=== PATIENT | male | born 1980 | race African-American/Black ===

== ENCOUNTER 2016-12-30 23:14 | Emergency (ER) | payer BC ==
[~2016-12-30] VITALS: Ht 182.9 cm; Wt 136.1 kg
[2016-12-31 01:25] VITALS: BP 168/93
--- NOTE | 2016-12-31 01:29 | PHYS DOC ---
Past Medical History Past Medical History: No Pertinent History Past Surgical History: No Surgical History Alcohol Use: None Drug Use: None Adult General Chief Complaint Chief Complaint: PAIN ON URINATION HPI HPI Patient is a 36 year old male who presents with dysuria & penile discharge. The patient reports onset of symptoms yesterday, has burning with urination & white discharge. Denies fevers/chills, nausea, vomiting, abdominal pain, flank pain, testicular pain, rash. Sexually active with multiple partners, uses condoms but one broke last week. Previously treated for gonorrhea. No other significant past medical history. Review of Systems Review of Systems Constitutional: Denies fever or chills HENT: Denies nasal congestion or sore throat Respiratory: Denies cough or shortness of breath Cardiovascular: Denies chest pain GI: Denies abdominal pain, nausea, vomiting, : See HPI Musculoskeletal: Denies back pain or joint pain Integument: Denies rash Neurologic: Denies headache Current Medications Current Medications Current Medications Medications (Trade) Dose Ordered Sig/Nicki Start Time Stop Time Status Last Admin Dose Admin Azithromycin (Zithromax) 1,000 mg 1X ONCE 12/31/16 01:45 12/31/16 01:46 DC 12/31/16 01:45 1,000 MG Ceftriaxone Sodium (Rocephin Im) 250 mg 1X ONCE 12/31/16 01:45 12/31/16 01:46 DC 12/31/16 01:45 250 MG Allergies Allergies Allergies Coded Allergies Type Severity Reaction Last Updated Verified No Known Drug Allergies 03/07/15 No Physical Exam Physical Exam Constitutional: obese, no acute distress, non-toxic appearance. HENT: Normocephalic, atraumatic, bilateral external ears normal, oropharynx moist, nose normal. Eyes: conjunctiva normal, no discharge. Cardiovascular: no edema. Lungs & Thorax: no respiratory distress. Abdomen: nondistended. : normal male external genitalia, circumcised, no discharge seen, no rash, no testicular tenderness or masses Skin: Warm, dry, no erythema, no rash. Extremities: No deformity Neurologic: Alert and oriented X 3 Current Patient Data Vital Signs Vital Signs Date Time Temp Pulse Resp B/P (MAP) Pulse Ox O2 Delivery O2 Flow Rate FiO2 12/31/16 01:25 97.9 75 16 100 Room Air 97.9 12/31/16 01:24 168/93 (118) Lab Values Laboratory Tests Test 12/30/16 01:47 Urine Collection Type Unknown Urine Color Yellow Urine Clarity Clear Urine pH 5.5 Urine Specific [place] >=1.030 Urine Protein Negative mg/dL (NEG-TRACE) Urine Glucose (UA) Negative mg/dL (NEG) Urine Ketones (Stick) Negative mg/dL (NEG) Urine Blood Negative (NEG) Urine Nitrite Negative (NEG) Urine Bilirubin Negative (NEG) Urine Urobilinogen Dipstick 0.2 mg/dL (0.2 mg/dL) Urine Leukocyte Esterase Small (NEG) Urine RBC 0 /HPF (0-2) Urine WBC 5-10 /HPF (0-4) Urine Squamous Epithelial Cells Occ /LPF Urine Bacteria 0 /HPF (0-FEW) Urine Hyaline Casts Occasional /HPF Urine Mucus Mod /LPF EKG EKG [] Radiology/Procedures Radiology/Procedures [] Course & Med Decision Making Course & Med Decision Making Pertinent Labs and Imaging studies reviewed. (See chart for details) Patient seen for urethritis. Urine GC/chlamydia sent, empirically treated with azithromycin & rocephin. Counseled regarding safe sex practices, inform all sexual partners & they should be treated as well. Follow up as needed with primary care. Come back for fever, severe pain, uncontrolled vomiting, any otherwise worsening condition. Discharged home in stable condition. [] Dragon Disclaimer Dragon Disclaimer This electronic medical record was generated, in whole or in part, using a voice recognition dictation system. Departure Departure Impression: Primary Impression: Urethritis Disposition: 01 HOME, SELF-CARE Condition: STABLE Referrals: XAVI LOPEZ (PCP) Patient Instructions: Safe Sex, Urethritis, Adult Additional Instructions: You received in the emergency department today for urinary symptoms and discharged. You were treated for, and sexual transmitted infections. Be sure to always use protection when having sex. Notify all sexual partners that you were treated tonight. No sex for one week. Follow-up as needed with primary care physician. Return to the emergency department for high fever, severe abdominal pain, uncontrolled vomiting, any otherwise worsening condition. SANTI HOOVER MD Dec 31, 2016 01:29
[2016-12-31] MEDS ORDERED: cefTRIAXone IM 250 MG VIAL IM ONE (01:45)
[2016-12-31] MEDS ORDERED: AZITHROMYCIN 250 MG TABLET. PO ONE (01:45)
[2016-12-31 01:54] LABS: BILIRUBIN,URINE NEGATIVE (NEG); GLUCOSE,URINE NEGATIVE (NEG); NITRITE,URINE NEGATIVE (NEG); PH,URINE 5.5; PROTEIN,URINE NEGATIVE (NEG-TRACE); UROBILINOGEN,URINE 0.2 mg/dL (0.2 mg/dL)
[2016-12-31 02:30] LABS: BACTERIA,URINE 0 /HPF (0-FEW); RBC,URINE 0 /HPF (0-2)
[2016-12-31 02:31] LABS: SQUAMOUS EPITHELIAL CELL,UR OCC /LPF
== END 2016-12-31 02:02 | disposition home or self-care (01) ==
LOC: ER 23:14
DX: N34.2 Other urethritis (principal)
CPT/HCPCS: 81001; 87491; 87591; 96372; 99284; J0696; Q0144